=== PATIENT | female | born 1950 | race Caucasian/White ===

== ENCOUNTER → 2016-09-26 | Outpatient (CLI) | payer MEDICARE ==
--- NOTE | 2016-09-26 16:08 | XR ---
EXAMINATION TYPE: XR chest 2V DATE OF EXAM: 09/26/2016 HISTORY: J44.9 COPD. REFERENCE: Previous study dated 04/11/2010. FINDINGS: There are mild, chronic increased markings throughout both lung bases. Heart size is normal . Pleural spaces are clear. IMPRESSION: NO ACTIVE INTRATHORACIC DISEASE.
== END | disposition home or self-care (01) ==
LOC: RADXRMAIN 13:14
PROVIDERS: ATTEND Family Medicine
DX: J44.9 Chronic obstructive pulmonary disease, unspecified (principal)
CPT/HCPCS: 71020

== ENCOUNTER → 2016-10-17 | Outpatient (CLI) | payer MEDICARE ==
--- NOTE | 2016-10-17 09:28 | BD ---
EXAMINATION TYPE: MG DEXA axial skeleton. DATE OF EXAM: 10/17/2016 COMPARISON: 05.25.2014 DEXA bone scan CLINICAL HISTORY: Z78.0 ASYMPTOMATIC MENOPAUSAL STATE Height: 63.5 Weight: 160 FRAX RISK QUESTIONS: Alcohol (3 or more units per day): NO Family History (Parent hip fracture): NO Glucocorticoids (More than 3mos): NO (Ex: prednisone, prednisolone, methylprednisolone, dexamethasone, and hydrocortisone). History of Fracture in Adulthood: NO Secondary Osteoporosis: NO 1. Type 1 Diabetes: NO 2. Hyperthyroidism: NO 3. Menopause before 45: NO 4. Malnutrition: NO 5. Chronic liver disease: NO Rheumatoid Arthritis: NO Current Tobacco Use: YES, A PAC DAILY RISK FACTORS HISTORY OF: Family History of Osteoporosis: NO Active: YES Diet low in dairy products/other sources of calcium: NO Postmenopausal woman: 50 Lost more than 2 inches in height since high school: NO Hyperparathyroidism: NO Adrenal Insufficiency: NO MEDICATIONS: Prednisone or other steroids: INHALERS/STEROIDS FOR LUNGS How Long: MO Additional Medications: BP MEDS, VIT D SUPP., STATIN FOR CHOLESTEROL, Additional History: PT STATES NONE TO NOTE EXAM MEASUREMENTS: Bone mineral densitometry was performed using the [employer] System. Bone mineral density as measured about the Lumbar spine is: ----- L1-L4(G/cm2): 0.999 T Score Values are as follows: ----- L1: -1.3 ----- L2: -2.5 ----- L3: -1.7 ----- L4: -0.8 ----- L1-L4: -1.5 Bone mineral density has: Increased 2.0% since study of: 05.25.2014 Bone mineral density about the R hip (g/cm2): 0.837 Bone mineral density about the L hip (g/cm2): 0.787 T Score values are as follows: -----R Neck: -2.1 -----L Neck: -2.0 -----R Total: -1.4 -----L Total: -1.8 Bone mineral density has: Decreased -3.6% since study of: 05.25.2014 FRAX %'S: THERE IS A 12.9% CHANCE OF A MAJOR OSTEOPOROTIC FX AND A 3.8% CHANCE OF A HIP FX......P ROBABILITY IN 10 YRS TIME IMPRESSION: Osteopenia (T Score between -2.5 and -1 as noted by T score values There is slightly increased risk of fracture and the patient may be considered for treatment. Re-Screen 2-5 years. FOR BOTH HIPS AND LUMBAR SPINE remains present. NOTE: T-SCORE=SD OF THE YOUNG ADULT MEAN.
--- NOTE | 2016-10-18 13:20 | MM ---
Reason for exam: screening (asymptomatic). Last mammogram was performed 1 year and 6 months ago. History: Patient is postmenopausal. Family history of breast cancer in grandmother at age 67. Took hormonal contraceptives for 5 years. Physical Findings: A clinical breast exam by your physician is recommended on an annual basis and results should be correlated with mammographic findings. MG 3D Screening Mammo W/Cad Bilateral CC and MLO view(s) were taken. Prior study comparison: April 15, 2015, bilateral MG screening mammo w CAD. October 29, 2013, bilateral MG screening mammo w CAD. February 14, 2012, bilateral digital screening mammo w/CAD. There are scattered fibroglandular densities. No significant changes when compared with prior studies. ASSESSMENT: Negative, BI-RAD 1 RECOMMENDATION: Routine screening mammogram of both breasts in 1 year.
== END | disposition home or self-care (01) ==
LOC: RADMAMWWP 08:10
PROVIDERS: ATTEND Family Medicine
DX: Z12.31 Encounter for screening mammogram for malignant neoplasm of breast (principal); M85.88 Other specified disorders of bone density and structure, other site; Z78.0 Asymptomatic menopausal state
CPT/HCPCS: 77080; 77063; G0202

== ENCOUNTER 2018-11-25 16:20 | Emergency (ER) | payer MEDICARE ==
[2018-11-25] MEDS ORDERED: DEXAMETHASONE SOD PHOSPHATE 10 MG/ML 1 ML VIAL IV STA (16:29)
[2018-11-25] MEDS ORDERED: FAMOTIDINE 20 MG/2 ML VIAL IV STA (16:40)
[2018-11-25] MEDS ORDERED: SODIUM CHLORIDE 0.9% 1,000 ML IV STA (16:40)
[2018-11-25] MEDS ORDERED: diphenhydrAMINE 50 MG/ML 1 ML VIAL IVP STA (16:40)
--- NOTE | 2018-11-25 17:38 | ED ---
Allergic Reaction HPI - General Chief complaint: Allergic Reaction Stated complaint: bee sting Time Seen by Provider: 11/25/18 16:29 Source: patient, RN notes reviewed, old records reviewed Mode of arrival: ambulatory Limitations: no limitations - History of Present Illness Initial Comments: This is a 68-year-old female the ER for evaluation she presents today for evaluation of ALLERGIC reaction. Patient was stung in the back by a bee. Patient's bee sting is lateral left shoulder. He did feel lightheaded and dizzy weak with erythema and diffuse itching. No significant shortness of breath is not 30 Celexa. Patient has no prior similar reaction to bee sting. She is a 4-year-old does not feel well MD Complaint: allergic reaction, other (Bee sting) -: minutes(s) Exposure: unknown Symptoms: rash, itching, dizziness, nausea Severity: moderate Treatment Prior to Arrival: none Previous Allergy History: none - Related Data Home Medications Medication Instructions Recorded Confirmed amLODIPine/ATORVASTATIN 1 tab PO DAILY 11/25/18 11/25/18 [amLODIPine/ATORVASTATIN 5-20 MG] Allergies Allergy/AdvReac Type Severity Reaction Status Date / Time Penicillins Allergy Rash/Hives Verified 11/25/18 17:13 Review of Systems ROS Statement: Those systems with pertinent positive or pertinent negative responses have been documented in the HPI. ROS Other: All systems not noted in ROS Statement are negative. Past Medical History Past Medical History: No Reported History, Unable to Obtain History of Any Multi-Drug Resistant Organisms: None Reported Past Surgical History: No Surgical Hx Reported, Unable to Obtain Past Psychological History: No Psychological Hx Reported Smoking Status: Current every day smoker Past Alcohol Use History: None Reported Past Drug Use History: None Reported General Exam - General Exam Comments Initial Comments: Patient does have improvement of rash and itching, anterior thigh rash, anterior knee rash Limitations: no limitations General appearance: alert, in no apparent distress Head exam: Present: atraumatic, normocephalic, normal inspection Eye exam: Present: normal appearance, PERRL, EOMI. Absent: scleral icterus, conjunctival injection, periorbital swelling ENT exam: Present: normal exam, mucous membranes moist Neck exam: Present: normal inspection. Absent: tenderness, meningismus, lymphadenopathy Respiratory exam: Present: normal lung sounds bilaterally. Absent: respiratory distress, wheezes, rales, rhonchi, stridor Cardiovascular Exam: Present: regular rate, normal rhythm, normal heart sounds. Absent: systolic murmur, diastolic murmur, rubs, gallop, clicks GI/Abdominal exam: Present: soft, normal bowel sounds. Absent: distended, tenderness, guarding, rebound, rigid Extremities exam: Present: normal inspection, full ROM, normal capillary refill. Absent: tenderness, pedal edema, joint swelling, calf tenderness Back exam: Present: normal inspection Neurological exam: Present: alert, oriented X3, CN II-XII intact Psychiatric exam: Present: normal affect, normal mood Skin exam: Present: warm, dry, intact, normal color. Absent: rash Course Vital Signs 11/25/18 11/25/18 16:29 16:46 Pulse Rate 105 H Respiratory 24 18 Rate Blood Pressure 109/72 O2 Sat by Pulse 93 L Oximetry - Reevaluation(s) Reevaluation #1: 11/25/18 17:38 Medical record is reviewed Reevaluation #2: 11/25/18 17:38 Patient symptoms are continuing to improve Reevaluation #3: 11/25/18 18:23 Patient continues to feel improved Medical Decision Making - Medical Decision Making 68 female the ER with bee sting ALLERGIC reaction to bee sting. Patient this time is asymptomatic and can be discharged home Disposition Clinical Impression: Allergic reaction, Allergic reaction to insect sting Disposition: ADMITTED IP TO THIS [facility] Condition: Good Instructions (If sedation given, give patient instructions): Anaphylaxis (ED), Insect Bite or Sting (ED) Is patient prescribed a controlled substance at d/c from ED?: No Referrals: Larry Avina MD [Primary Care Provider] - 1-2 days
[2018-11-25 18:36] VITALS: BP 112/83; PULSE 79; RESP 16
== END 2018-11-25 18:36 | disposition other institution (70) ==
LOC: EC 16:20
DX: T63.441A Toxic effect of venom of bees, accidental (unintentional), initial encounter (principal); F17.200 Nicotine dependence, unspecified, uncomplicated; Z88.0 Allergy status to penicillin
CPT/HCPCS: 96374; 96375 ×2; 96361; 99284; J1200; J1100

== ENCOUNTER → 2018-12-12 | Outpatient (CLI) | payer MEDICARE ==
--- NOTE | 2018-12-12 09:17 | US ---
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 Patient states no symptoms EXAM MEASUREMENTS: Abdominal Aorta: Proximal: 2.4 x 2.5cm Mid: 2.0 x 2.0cm Distal: 2.9 x 3.2cm Right Iliac: 0.9 x 1.2cm Left Iliac: 0.8 x 1.2cm Saccular distal abdominal aortic aneurysm is seen measuring 2.9 x 3.2cm. This measures approximately 3.0 cm in length. IMPRESSION: Distal abdominal aortic aneurysm appears saccular measuring 2.9 x 3.2 cm and extending 3. 0 cm in length.
== END | disposition home or self-care (01) ==
LOC: RADUSWWP 07:29
PROVIDERS: ATTEND Family Medicine
DX: I71.4 Abdominal aortic aneurysm, without rupture (principal)
CPT/HCPCS: 93979

== ENCOUNTER → 2019-01-02 | Outpatient (CLI) | payer MEDICARE ==
[2019-01-02 08:45] LABS: Anisocytosis Slight; Basophils % (A) 0 %; Eosinophils % (A) 0 %; HCT 40.7 % (34.0-46.0); HGB 13.9 gm/dL (11.4-16.0); Lymphocytes # (A) 2.2 k/uL (1.0-4.8); Lymphocytes % (A) 27 %; MCH 31.4 pg (25.0-35.0); MCHC 34.1 g/dL (31.0-37.0); MCV 92.1 fL (80.0-100.0); Mean Platelet Volume 7.1; Monocytes # (A) 0.4 k/uL (0-1.0); Monocytes % (A) 5 %; Neutrophils # (A) 5.1 k/uL (1.3-7.7); Neutrophils % (A) 63 %; Platelet Count 392 k/uL (150-450); RBC 4.42 m/uL (3.80-5.40); RDW 16.4 % (11.5-15.5)
--- NOTE | 2019-01-02 11:19 | BD ---
EXAMINATION TYPE: Axial Bone Density DATE OF EXAM: 01/02/2019 COMPARISON: 2017 CLINICAL HISTORY: Z 78.0 Height: 63.5 Weight: 155 FRAX RISK QUESTIONS: Alcohol (3 or more units per day): no Family History (Parent hip fracture): no Glucocorticoids (More than 3mos): not now (Ex: prednisone, prednisolone, methylprednisolone, dexamethasone, and hydrocortisone). History of Fracture in Adulthood: no Secondary Osteoporosis: 1. Type 1 Diabetes: no 2. Hyperthyroidism: no 3. Menopause before 45: no 4. Malnutrition: no 5. Chronic liver disease: no Rheumatoid Arthritis: no Current Tobacco Use: yes RISK FACTORS HISTORY OF: History of wrist fracture: yes, both as a child Family History of Osteoporosis: no Active: yes Diet low in dairy products/other sources of calcium: no Postmenopausal woman: yes Take estrogen and/or progesterone medications: not now How long: hormonal contraceptives about 5 years Lost more than 2 inches in height since high school: no Frequent falls: no Poor Health: no Hyperparathyroidism: no Adrenal Insufficiency: no MEDICATIONS: Prednisone or other steroids: no Thyroid Medications: no Osteoporosis Medications: no Additional Medications: combo BP & cholesterol med Additional History: history of lung issues EXAM MEASUREMENTS: Bone mineral densitometry was performed using the [employer] System. Bone mineral density as measured about the Lumbar spine is: ----- L1-L4(G/cm2): 0.971 T Score Values are as follows: ----- L2: -2.8 ----- L3: -2.5 ----- L4: -0.5 ----- L1-L4: -1.7 Bone mineral density has: Decreased -3.2% since study of: 10/17/2016 Bone mineral density about the R hip (g/cm2): 0.746 Bone mineral density about the L hip (g/cm2): 0.753 T Score values are as follows: -----R Neck: -2.1 -----L Neck: -2.1 -----R Total: -1.4 -----L Total: -1.7 Bone mineral density has: Increased 0.1% since study of: 10/17/2016 IMPRESSION: Osteopenia (T Score between -2.5 and -1). Values approach osteoporosis in regards to the lumbar spine . There is slightly increased risk of fracture and the patient may be considered for treatment. Re-Screen 2-5 years. NOTE: T-SCORE=SD OF THE YOUNG ADULT MEAN.
--- NOTE | 2019-01-03 14:02 | MM ---
Reason for exam: screening (asymptomatic). Last mammogram was performed 2 years and 2 months ago. History: Patient is postmenopausal. Family history of breast cancer in grandmother at age 67. Took hormonal contraceptives for 5 years. Physical Findings: A clinical breast exam by your physician is recommended on an annual basis and results should be correlated with mammographic findings. MG Screening Mammo w CAD Bilateral CC and MLO view(s) were taken. Prior study comparison: October 17, 2016, bilateral MG 3d screening mammo w/cad. April 15, 2015, bilateral MG screening mammo w CAD. The breast tissue is almost entirely fat. No significant changes when compared with prior studies. ASSESSMENT: Benign, BI-RAD 2 RECOMMENDATION: Routine screening mammogram of both breasts in 1 year.
== END | disposition home or self-care (01) ==
LOC: RADMAMWWP 06:59
PROVIDERS: ATTEND Family Medicine
DX: Z12.31 Encounter for screening mammogram for malignant neoplasm of breast (principal); Z13.820 Encounter for screening for osteoporosis; M81.0 Age-related osteoporosis without current pathological fracture; M85.80 Other specified disorders of bone density and structure, unspecified site; D72.829 Elevated white blood cell count, unspecified; Z78.0 Asymptomatic menopausal state
CPT/HCPCS: 77067; 77080; 85025

== ENCOUNTER → 2019-06-30 | Outpatient (CLI) | payer MEDICARE ==
--- NOTE | 2019-06-30 07:48 | US ---
EXAMINATION TYPE: US duplex aorta DATE OF EXAM: 06/30/2019 COMPARISON: US 12/12/2018 CLINICAL HISTORY: 68-year-old female I71.9 AAA. TECHNIQUE: Multiple sonographic images of the abdominal aorta are obtained. FINDINGS: EXAM MEASUREMENTS: Abdominal Aorta: Proximal: 2.7 x 2.4 cm Mid: 2.4 x 2.0 cm Distal: 3.5 x 2.9 cm for a span of 3.8 cm long. Bifurcation: RT: 0.8 cm LT: 0.8 cm Atherosclerotic plaque visualized. IMPRESSION: 1. A 3.8 cm long infrarenal AAA of the distal abdominal aorta measured at 3.5 x 2.9 cm on transverse images. 2. Ectasia measured at the upper abdominal aorta 2.7 cm.
== END | disposition home or self-care (01) ==
LOC: RADUSWWP 06:48
PROVIDERS: ATTEND Family Medicine
DX: I71.4 Abdominal aortic aneurysm, without rupture (principal)
CPT/HCPCS: 93979

== ENCOUNTER → 2020-04-15 | Outpatient (CLI) | payer MEDICARE ==
--- NOTE | 2020-04-19 09:15 | MM ---
Reason for exam: screening (asymptomatic). Last mammogram was performed 1 year and 3 months ago. History: Patient is postmenopausal. Family history of breast cancer in grandmother at age 67. Took hormonal contraceptives for 5 years. Physical Findings: A clinical breast exam by your physician is recommended on an annual basis and results should be correlated with mammographic findings. MG Screening Mammo w CAD Bilateral CC and MLO view(s) were taken. Prior study comparison: January 02, 2019, bilateral MG screening mammo w CAD. October 17, 2016, bilateral MG 3d screening mammo w/cad. There are scattered fibroglandular densities. There are benign appearing dystrophic calcifications in the left breast. There is no discrete abnormality. ASSESSMENT: Benign, BI-RAD 2 RECOMMENDATION: Routine screening mammogram of both breasts in 1 year.
== END | disposition home or self-care (01) ==
LOC: RADMAMWWP 07:54
PROVIDERS: ATTEND Family Medicine
DX: Z12.31 Encounter for screening mammogram for malignant neoplasm of breast (principal)
CPT/HCPCS: 77067

== ENCOUNTER → 2021-05-25 | Outpatient (CLI) | payer MEDICARE ==
--- NOTE | 2021-05-25 15:24 | BD ---
EXAMINATION TYPE: Axial Bone Density DATE OF EXAM: 05/25/2021 COMPARISON: 01.02.2019 CLINICAL HISTORY: 70 YR OLD FEMALE......ICD-10 CODE: Z78.0 MENOPAUSAL Height: 62.6 Weight: 159 FRAX RISK QUESTIONS: Current Tobacco Use: YES RISK FACTORS HISTORY OF: Postmenopausal woman: YES, AT AGE 48 Hyperparathyroidism: NO Adrenal Insufficiency: NO MEDICATIONS: Additional Medications: BP MEDS, VIT D Additional History: HYPERTENSION, SMOKER EXAM MEASUREMENTS: Bone mineral densitometry was performed using the [employer] System. Bone mineral density as measured about the Lumbar spine is: ----- L1-L4(G/cm2): 0.898 T Score Values are as follows: ----- L1: -1.9 ----- L2: -2.0 ----- L3: -3.0 ----- L4: -2.5 ----- L1-L4: -2.4 Bone mineral density has: Decreased -7.7% since study of: 01.02.2019 Bone mineral density about the R hip (g/cm2): 0.823 Bone mineral density about the L hip (g/cm2): 0.772 T Score values are as follows: -----R Neck: -2.2 -----L Neck: -2.2 -----R Total: -1.5 -----L Total: -1.9 Bone mineral density has: Decreased -1.8% since study of: 01.02.2019 FRAX%s: THERE IS A 22.4% CHANCE FOR A MAJOR OSTEOPOROTIC FX AND A 9.7% FOR HER HIPS......PROBABILI TY FOR FX IN 10 YRS TIME IMPRESSION: Osteopenia NOTE: T-SCORE=SD OF THE YOUNG ADULT MEAN.
--- NOTE | 2021-05-27 12:35 | MM ---
Reason for exam: screening (asymptomatic). Last mammogram was performed 1 year and 1 month ago. History: Patient is postmenopausal. Family history of breast cancer in grandmother at age 67. Took hormonal contraceptives for 5 years. Physical Findings: A clinical breast exam by your physician is recommended on an annual basis and results should be correlated with mammographic findings. MG 3D Screening Mammo W/Cad Bilateral CC and MLO view(s) were taken. Prior study comparison: April 15, 2020, bilateral MG screening mammo w CAD. January 02, 2019, bilateral MG screening mammo w CAD. There are scattered fibroglandular densities. There is chronic nodularity in the left breast. No significant changes when compared with prior studies. ASSESSMENT: Benign, BI-RAD 2 RECOMMENDATION: Routine screening mammogram of both breasts in 1 year.
== END | disposition home or self-care (01) ==
LOC: RADMAMWWP 13:52
PROVIDERS: ATTEND Family Medicine
DX: Z12.31 Encounter for screening mammogram for malignant neoplasm of breast (principal); Z78.0 Asymptomatic menopausal state; M85.89 Other specified disorders of bone density and structure, multiple sites; Z80.3 Family history of malignant neoplasm of breast
CPT/HCPCS: 77063; 77067; 77080

== ENCOUNTER → 2021-06-06 | Outpatient (CLI) | payer MEDICARE ==
--- NOTE | 2021-06-06 13:15 | XR ---
EXAMINATION TYPE: XR lumbosacral spine min 4V DATE OF EXAM: 06/06/2021 COMPARISON: None HISTORY: Low back pain TECHNIQUE: 5 view lumbar spine FINDINGS: There are 4 lumbar type vertebral bodies. There may be attempted sacralization of L5. Facet degenerative changes present L5-S1. There is narrowing of the L5-S1 disc height. Remaining disc heig hts are preserved. Vertebral body heights are preserved. IMPRESSION: 1. Degenerative disc changes and facet changes L5-S1
== END | disposition home or self-care (01) ==
LOC: RADXRMAIN 12:02
PROVIDERS: ATTEND Nurse Practitioner Family
DX: M51.37 Other intervertebral disc degeneration, lumbosacral region (principal); M47.817 Spondylosis without myelopathy or radiculopathy, lumbosacral region
CPT/HCPCS: 72110

== ENCOUNTER → 2022-08-28 | Outpatient (CLI) | payer MEDICARE ==
--- NOTE | 2022-08-29 08:17 | MM ---
Reason for Exam: Screening (asymptomatic). Last mammogram was performed 1 year(s) and 3 month(s) ago. Patient History: Menarche at age 11. First Full-Term at age 17. Postmenopausal. Patient used Hormonal Contraceptives for 5 years. Maternal grandmother had breast cancer, age 67. Risk Values: Rossy 5 year model risk: 1.3%. NCI Lifetime model risk: 3.1%. Prior Study Comparison: 01/02/2019 Bilateral Screening Mammogram, [facility]. 04/15/2020 Bilateral Screening Mammogram, [facility]. 05/25/2021 Bilateral Screening Mammogram, [facility]. Tissue Density: The breast tissue is almost entirely fat. Findings: Analyzed By CAD. There is no suspicious group of microcalcifications or new suspicious mass in either breast. Overall Assessment: Negative, BI-RAD 1 Management: Screening Mammogram of both breasts in [address] [facility] will attempt to contact patient to return for supplemental views and ultrasound if indicated. Patient should continue monthly self-breast exams. A clinical breast exam by your physician is recommended on an annual basis. This exam should not preclude additional follow-up of suspicious palpable abnormalities. Note on Rossy scores and lifetime risk: 1. A Rossy score greater than 3% is considered moderate risk. If this is the case, consider specialist referral to assess eligibility for a risk reducing agent. 2. If overall lifetime risk for the development of breast cancer is 20% or higher, the patient may qualify for future screening with alternating mammogram and breast MRI. Electronically signed and approved by: Alistair Mejias DO
== END | disposition home or self-care (01) ==
LOC: RADMAMWWP 07:08
PROVIDERS: ATTEND Family Medicine
DX: Z12.31 Encounter for screening mammogram for malignant neoplasm of breast (principal); Z78.0 Asymptomatic menopausal state; Z80.3 Family history of malignant neoplasm of breast
CPT/HCPCS: 77063; 77067

== ENCOUNTER → 2023-02-06 | Outpatient (CLI) | payer MEDICARE ==
--- NOTE | 2023-02-06 11:28 | CA ---
Transthoracic Echo Report Name: Shazia Lujan Age: 72 Gender: F : 1950 Exam Date: 02/06/2023 09:51 Exam Location: [facility] Ht (in): 64 Wt (lb): 160 Ordering Physician: Larry Avina MD Attending/Referring Phys: Sania Barnes [facility] Ticket Attendant Crystal Flores [facility] Procedure CPT: Indications: R94.31 abn ekg Cardiac Hx: Technical Quality: Fair Contrast 1: Total Dose (mL): Contrast 2: Total Dose (mL): MEASUREMENTS (Male / Female) Normal Values 2D ECHO LV Diastolic Diameter PLAX 3.7 cm 4.2 - 5.9 / 3.9 - 5.3 cm LV Systolic Diameter PLAX 2.3 cm IVS Diastolic Thickness 1.0 cm 0.6 - 1.0 / 0.6 - 0.9 cm LVPW Diastolic Thickness 1.0 cm 0.6 - 1.0 / 0.6 - 0.9 cm LV Relative Wall Thickness 0.5 LVOT Diameter 2.0 cm Ascending Aorta Diameter 3.4 cm M-MODE Aortic Root Diameter MM 2.1 cm LA Systolic Diameter MM 3.3 cm LA Ao Ratio MM 1.6 AV Cusp Separation MM 1.6 cm DOPPLER AV Peak Velocity 114.3 cm/s AV Peak Gradient 5.2 mmHg AV Mean Velocity 82.7 cm/s AV Mean Gradient 3.0 mmHg AV Velocity Time Integral 21.5 cm LVOT Peak Velocity 93.6 cm/s LVOT Peak Gradient 3.5 mmHg LVOT Velocity Time Integral 16.7 cm LVOT Stroke Volume 54.5 cm??? LVOT Stroke Volume Index 30.6 ml/m??? LVOT Cardiac Index 2981.6 cm???/min???m??? AV Area Cont Eq vti 2.5 cm??? AV Area Cont Eq pk 2.7 cm??? Mitral E Point Velocity 53.2 cm/s Mitral A Point Velocity 89.3 cm/s Mitral E to A Ratio 0.6 MV Deceleration Time 215.6 ms LV E' Lateral Velocity 9.5 cm/s Mitral E to LV E' Lateral Ratio 5.6 LV E' Septal Velocity 4.3 cm/s Mitral E to LV E' Septal Ratio 12.3 TR Peak Velocity 225.6 cm/s TR Peak Gradient 20.4 mmHg Right Atrial Pressure 3.0 mmHg Pulmonary Artery Systolic Pressu 23.4 mmHg Right Ventricular Systolic Press 23.4 mmHg FINDINGS Left Ventricle Mildly increased left ventricular wall thickness. Left ventricular cavity size normal. Normal left ventricular systolic function with no obvious regional wall motion abnormalities. Left ventricular ejection fraction is estimated at 60- 65%. Right Ventricle Normal right ventricular size. Right Atrium Normal right atrial size. Left Atrium Normal left atrial size. Highly mobile intra-atrial septum Mitral Valve Mitral valve thickened. Trace mitral regurgitation. Aortic Valve Trileaflet aortic valve. Aortic valve sclerosis. No aortic regurgitation. Tricuspid Valve Structurally normal tricuspid valve. Trace tricuspid regurgitation. Pulmonic Valve Pulmonic valve not well visualized. Pericardium No pericardial effusion. Aorta Normal size aortic root. CONCLUSIONS 1. Normal left ventricle size and systolic function 2. Trace mitral and tricuspid regurgitation Previewed by: Dr. Africa Madrigal MD (Electronically Signed) Final Date: 06 February 2023 11:27
--- NOTE | 2023-02-06 13:04 | CA ---
Stress Echo Report Shazia Lujan Age: 72 Gender: F : 1950 Exam Date: 02/06/2023 09:37 Exam Location: [place] [facility] Ht (in): 64 Wt (lb): 160 Ordering Physician: Larry Avina MD Referring Physician: Sania Barnes [facility] Retrimmer: Crystal Flores [facility] Technologist Procedure CPT: Indication: R94.31 abn ekg ICD-9 Codes: Rhythm: Patient History: CP, ANTONIA, HTN, CHOL, FAMILY HX, CATH, COPD, TOB (1PPD X 54YRS) Cardiac Medications: N/A Medications in past 24 hours: Contrast: Stress Results Protocol: Kody Total dose(mL): Exercise Duration (min:sec): Max ST Depression (mm): Angina Score: Gamboa Score: METS: 5.2 Resting HR: 92 Resting BP: 101 / 79 Peak HR: 147 Peak BP: 142 / 90 Max Predicted HR: 146 101 % Max Predicted HR Target HR: 124 Double Product: [id number] Stress Summary: The patient's target heart rate was achieved BP Response: Normal Reason for Termination: MAX EXERTION/TARGET HR Cardiac Symptoms: NO SYMPTOMS ECG Analysis Resting ECG: Normal sinus rhythm, normal ECG Stress ECG: No abnormal ST/T wave changes with exercise Arrhythmia: None Echo Analysis Resting Echo: Normal resting echocardiogram. Peak Echo Analysis: Normal wall thickening and motion MEASUREMENTS (Male/Female) Normal Values CONCLUSIONS 1. Decrease exercise tolerance 2. Normal electrocardiographic response to exercise 3. Normal stress echocardiogram with no evidence of stress induced ischemia Dr. Africa Madrigal MD (Electronically Signed) Final Date: 06 February 2023 13:03
== END | disposition home or self-care (01) ==
LOC: RADNMMAIN 09:04
PROVIDERS: ATTEND Family Medicine
DX: I08.1 Rheumatic disorders of both mitral and tricuspid valves (principal); R94.31 Abnormal electrocardiogram [ECG] [EKG]
CPT/HCPCS: 93306; 93351

== ENCOUNTER → 2023-09-25 | Outpatient (CLI) | payer MEDICARE ==
--- NOTE | 2023-09-26 10:16 | MM ---
Reason for Exam: Screening (asymptomatic). Last mammogram was performed 1 year(s) and 1 month(s) ago. Patient History: Menarche at age 11. First Full-Term at age 17. Postmenopausal. Patient used Hormonal Contraceptives for 5 years. Maternal grandmother had breast cancer, age 67. Risk Values: Rossy 5 year model risk: 1.3%. NCI Lifetime model risk: 2.8%. Prior Study Comparison: 04/15/2020 Bilateral Screening Mammogram, [facility]. 05/25/2021 Bilateral Screening Mammogram, [facility]. 08/28/2022 Bilateral MG 3D screening mammo w/cad, [facility]. Tissue Density: The breasts are almost entirely fatty. Findings: Analyzed By CAD. There is no suspicious group of microcalcifications or new suspicious mass in either breast. Overall Assessment: Benign, BI-RAD 2 Management: Screening Mammogram of both breasts in 1 year. . Patient should continue monthly self-breast exams. A clinical breast exam by your physician is recommended on an annual basis. This exam should not preclude additional follow-up of suspicious palpable abnormalities. Note on Rossy scores and lifetime risk: 1. A Rossy score greater than 3% is considered moderate risk. If this is the case, consider specialist referral to assess eligibility for a risk reducing agent. 2. If overall lifetime risk for the development of breast cancer is 20% or higher, the patient may qualify for future screening with alternating mammogram and breast MRI. Electronically signed and approved by: Leroy Alford M.D. Radiologis
--- NOTE | 2023-09-26 17:42 | BD ---
EXAMINATION TYPE: Axial Bone Density DATE OF EXAM: 09/25/2023 CLINICAL HISTORY: 73 years old Female. ICD-10 CODE: ,Z78.0 ASYMP TER[place] STATE Height: 63 in Weight: 158 lbs FRAX RISK QUESTIONS: Secondary Osteoporosis: Current Tobacco Use: yes RISK FACTORS HISTORY OF: History of Wrist Fracture: dionicio wrists age 8 EXAM MEASUREMENTS: Bone mineral densitometry was performed using the [facility]. Bone mineral density as measured about the Lumbar spine is: ----- L1-L4(G/cm2): 0.850 T Score Values are as follows: ----- L1: -2.2 ----- L2: -2.6 ----- L3: -3.3 ----- L4: -2.9 ----- L1-L4: -2.8 Z Score Values are as follows: ----- L1: -0.7 ----- L2: -1.1 ----- L3: -1.8 ----- L4: -1.4 ----- L1-L4: -1.2 Bone mineral density has: Decreased -5.3% since study of: 05/25/2021 Bone mineral density about the R hip (g/cm2): 0.792 Bone mineral density about the L hip (g/cm2): 0.708 T Score values are as follows: -----R Neck: -2.6 -----L Neck: -2.4 -----R Total: -1.7 -----L Total: -2.4 Z Score values are as follows: -----R Neck: -0.8 -----L Neck: -0.6 -----R Total: -0.1 -----L Total: -0.8 Bone mineral density has: Decreased -6.0% since study of: 05/25/2021 FRAX%s: The graph provided illustrates a 19.0% chance for a major osteoporotic fx and a 8.9% chance f or the hips probability for fx in 10 years time. IMPRESSION: Osteoporosis (T Score less than -2.5). There is increased fracture risk and therapy is usually indicated based on age. Re-Screen 1-2 years. NOTE: T-SCORE=SD OF THE YOUNG ADULT MEAN.
== END | disposition home or self-care (01) ==
LOC: RADBDWWP 07:58
PROVIDERS: ATTEND Family Medicine
DX: Z12.31 Encounter for screening mammogram for malignant neoplasm of breast (principal); M85.89 Other specified disorders of bone density and structure, multiple sites; M81.0 Age-related osteoporosis without current pathological fracture; Z78.0 Asymptomatic menopausal state; Z80.3 Family history of malignant neoplasm of breast
CPT/HCPCS: 77063; 77067; 77080